=== PATIENT | female | born 1940 | race Caucasian/White ===

== ENCOUNTER 2018-12-19 13:42 | Emergency (ER) | payer MEDICARE, MEDICAID ==
[~2018-12-19] VITALS: Ht 165.1 cm; Wt 113.4 kg
[2018-12-19 13:47] VITALS: BP_SYST 134
[2018-12-19] MEDS ORDERED: NACL 0.9% 1,000 ML IV ONE (14:00)
[2018-12-19] MEDS ORDERED: WARF5TAB2 GT (14:38)
[2018-12-19] MEDS ORDERED: METO25TA6 PO (14:38)
[2018-12-19] MEDS ORDERED: BISA5TAB10 PR (14:38)
[2018-12-19] MEDS ORDERED: SODIUM CHLORIDE GT (14:38)
[2018-12-19] MEDS ORDERED: DOCU-144 GT (14:38)
[2018-12-19] MEDS ORDERED: DEXT30DR6 EACH EYE (14:38)
[2018-12-19] MEDS ORDERED: TYLL650 PO (14:38)
[2018-12-19] MEDS ORDERED: MORP10SO GT (14:38)
[2018-12-19] MEDS ORDERED: AMIN30LI2 PO (14:38)
[2018-12-19] MEDS ORDERED: LORA-258 GT (14:38)
[2018-12-19] MEDS ORDERED: LIDOCAINE 2% VISCOUS (14:38)
[2018-12-19] MEDS ORDERED: POTA20TA83 GT (14:38)
[2018-12-19] MEDS ORDERED: VITD2000 GT (14:38)
[2018-12-19] MEDS ORDERED: MINE3.5O OP (14:38)
[2018-12-19] MEDS ORDERED: PEDI1TAB28 GT (14:38)
[2018-12-19] MEDS ORDERED: XALEYE OP (14:38)
[2018-12-19] MEDS ORDERED: CHOL500037 GT (14:38)
[2018-12-19] MEDS ORDERED: ASCO500T20 GT (14:38)
[2018-12-19] MEDS ORDERED: XOPMDI INH (14:38)
[2018-12-19] MEDS ORDERED: WARF7.5T2 GT (14:38)
[2018-12-19] MEDS ORDERED: INSU100V9 SQ (14:38)
[2018-12-19] MEDS ORDERED: SSREG SUBCUT (14:38)
[2018-12-19] MEDS ORDERED: MELA3TAB GT (14:38)
[2018-12-19] MEDS ORDERED: TYLL650 GT ×2 (14:38)
[2018-12-19 14:56] LABS: BASOPHILS % (AUTO) 0.4 % (0.0-2.0); EOSINOPHILS # (AUTO) 0.1 K/uL (0.0-0.4); EOSINOPHILS % (AUTO) 1.9 % (0.0-4.0); HEMATOCRIT 32.1 % (36-48); HEMOGLOBIN 10.5 g/dL (12.0-16.0); LYMPHOCYTES # (AUTO) 1.4 K/uL (1.0-5.5); MEAN CORPUSCULAR HEMOGLOBIN 28 pg (27-31); MEAN CORPUSCULAR HGB CONC 33 % (32-36); MEAN CORPUSCULAR VOLUME 86 fL (79.0-98.0); MONOCYTES # (AUTO) 0.4 K/uL (0.0-1.0); MONOCYTES % (AUTO) 5.3 % (1.7-9.3); NEUTROPHILS # (AUTO) 6.1 K/uL (1.8-7.7); NEUTROPHILS % (AUTO) 75.4 % (40.0-70.0); PLATELET COUNT (AUTO) 445 K/uL (130-430); RED BLOOD CELL COUNT(AUTO) 3.73 MIL/uL (4.2-6.2); WHITE BLOOD COUNT (AUTO) 8.1 K/uL (4.8-10.8)
[2018-12-19 15:13] LABS: CALCIUM 9.8 mg/dL (8.4-11.0); CHLORIDE 98 mmol/L (98-107); GLUCOSE 234 mg/dL (70-99); POTASSIUM 4.5 mmol/L (3.5-5.1); SODIUM SERUM 135 mmol/L (136-145); UREA NITROGEN, BLOOD 20 mg/dL (8-21)
[2018-12-19 15:14] LABS: ALANINE AMINOTRANSFERASE 98 U/L (12-78); ALBUMIN 2.5 g/dL (3.4-4.8); ASPARTATE AMINOTRANSFERASE 72 U/L (10-37); CREATININE 0.48 mg/dL (0.55-1.30); TOTAL BILIRUBIN 0.2 mg/dL (0.0-1.0)
[2018-12-19 15:29] LABS: ANION GAP 8 (5-15)
[2018-12-19 15:31] LABS: PROTHROMBIN TIME 86.1 SECS (9.5-12.5)
[2018-12-19 15:32] LABS: INR > 9.0 (0.8-1.2)
[2018-12-19] MEDS ORDERED: PHYTONADIONE 10 MG/ML AMP IM ONE (15:45)
[2018-12-19 15:47] LABS: BILIRUBIN,URINE NEGATIVE (NEGATIVE); BLOOD, URINE 2+ (NEGATIVE); CLARITY/URINE SL HAZY (CLEAR); COLOR,URINE YELLOW (YELLOW); GLUCOSE,URINE TRACE (NEGATIVE); KETONES,URINE NEGATIVE (NEGATIVE); LEUKOCYTE ESTERASE ,URINE NEGATIVE (NEGATIVE); NITRITE, URINE POSITIVE (NEGATIVE); PROTEIN URINE 2+ (NEGATIVE); UROBILINOGEN,URINE 0.2 (0.2-1.0)
[2018-12-19] MEDS ORDERED: LEVOFLOXACIN 500 MG/D5W 100 ML IV ONE (16:00)
[2018-12-19 16:07] LABS: BACTERIA,URINE MANY /HPF (None Seen); MUCUS,URINE 1+ /LPF (None Seen); RBC,URINE 20-50 /HPF (0-3)
[2018-12-19] MEDS ORDERED: ACETAMINOPHEN 650 MG/20.3 ML UDC PO ONE (18:00)
[2018-12-19 21:00] VITALS: BP_SYST 154
== END 2018-12-19 21:20 | disposition short-term general hospital (02) ==
LOC: SED 13:42
DX: N39.0 Urinary tract infection, site not specified (principal); D68.4 Acquired coagulation factor deficiency; E11.9 Type 2 diabetes mellitus without complications; F41.9 Anxiety disorder, unspecified; Z88.6 Allergy status to analgesic agent; Z88.8 Allergy status to other drugs, medicaments and biological substances; Z91.041 Radiographic dye allergy status; Z79.899 Other long term (current) drug therapy
CPT/HCPCS: 36415; 70450; 71045; 80053; 81000; 83605; 83880; 84484; 85025; 85610; 85730; 87040; 87070; 87086; 87186; 87205; 93005; 94640; 96361; 96365; 96372; 99285; J1956; J3430; J7030